=== PATIENT | male | born 1990 | race Caucasian/White ===

== ENCOUNTER 2018-03-20 20:32 | Emergency (ER) | payer MEDICAID ==
[2018-03-20] MEDS ORDERED: NS 1,000 ML IV ONE (20:54)
--- NOTE | 2018-03-20 21:16 | EDPHY ---
H & P Time Seen by Provider: 03/20/18 20:54 HPI/ROS: HPI Fainted earlier today. 27-year-old male by private vehicle with his care provider. He has a history of developmental delay. He is ambulatory without issue. He has a history of a seizure disorder prior syncopal events. His care provider tells me that he has a chronic balance problem. He had a brief syncopal event at 10:00 a.m. this morning after getting up from the seated position. He denies any associated sudden-onset headache, chest pain, shortness of breath, loss of sensation or weakness in his extremities. There was no witnessed seizure activity. It is not clear if he lost consciousness. His care provider told me that his eyes were open the entire time in the whole event lasted only a couple of seconds. He did not hit his head. He did not eat dinner last night and has had symptoms consistent with an upper respiratory infection for the last several days. His care provider thought that he looked more pale than usual and decided to bring him into the emergency department tonight. The patient does have a history of medical care seeking behavior so his care provider was initially reluctant to bring him in to the emergency department earlier today. The patient currently does not have any complaints. Please see review of systems for further details. ROS: Constitutional: No fever, no chills. As above. Eyes: No discharge. No changes in vision. ENT: No sore throat. No nasal congestion or rhinorrhea. Respiratory: No cough. No shortness of breath. Cardiac: No chest pain, no palpitations. Gastrointestinal: No abdominal pain, no vomiting, no diarrhea. Genitourinary: No hematuria. No dysuria or increased frequency with urination. Musculoskeletal: No back pain. No neck pain. No myalgias or arthralgias. Skin: No rashes. Neurological: No headache. No focal weakness or altered sensation. Past medical history: Pilonidal cyst, developmental delay, chronic balance problem, back surgery, seizures. Syncopal events in the past. No history of dysrhythmia. Social history: Is here with his care provider. No alcohol. No IV drugs or street drugs. Nonsmoker. Physical Exam: General Appearance: Alert, no distress. This patient is responding to questions appropriately and in full sentences. This patient appears well- hydrated and well-nourished. Head: Normocephalic atraumatic. Eyes: Pupils equal and round no pallor or injection. No lid edema, erythema or injection. ENT, Mouth: Mucous membranes are moist. The pharyngeal tissues are unremarkable. No edema or swelling. No asymmetry suggestive of abscess. No erythema or exudates. No tongue lacerations or abrasions. Respiratory: There are no retractions, lungs are clear to auscultation with good air movement bilaterally. Cardiovascular: Regular rate and rhythm. No murmur. Gastrointestinal: Abdomen is soft and nontender, no masses, bowel sounds normal. No focal tenderness at McBurney's point. No Mina sign. Neurological: Motor sensory function is grossly intact. Cranial nerves are normal. Gait is normal. Skin: Warm and dry, no rashes. Musculoskeletal: Neck is supple and nontender. Midline cervical, thoracic, lumbar tenderness on palpation. Extremities are symmetrical. All joints range without pain or impingement. Psychiatric: No agitation. No depression. Database: EKG: EKG time is 8:56 p.m.; EKG shows a narrow complex normal sinus rhythm with a ventricular rate of 72. Early repolarization pattern noted. The MT, QRS, QT intervals are within normal limits. There are no ST-T wave changes indicative of ischemic or injury pattern. No evidence of right heart strain. No evidence of WPW, Brugada syndrome, hypertrophic cardiomyopathy. Interpreted by me. Imaging: Procedures: Emergency department course: Triage vital signs reviewed. Temperature is 37.5 degrees. Vital signs are unremarkable. Patient's presentation is consistent with a vasovagal type syncope. Patient and caregiver consent for blood work to evaluate for anemia or electrolyte disorder. EKG obtained and reviewed by myself. The patient will be given 1 L of IV normal saline. Patient's blood work is unremarkable. No red flags on his EKG. Results of his emergency department workup discussed with the patient and his caregiver on re- evaluation at 9:40 p.m.. The patient and his inspector health care facilities feel comfortable being discharged. Follow-up and return to emergency department precautions reviewed with them. All of their questions were answered. The patient was discharged home in good condition with his caregiver. Differential Diagnosis: The differential diagnosis on this patient includes but is not limited to vasovagal syncope, noncardiac syncope. Arrhythmia, acute coronary syndrome, CVA , seizure, subarachnoid hemorrhage, pulmonary embolism unlikely. This represents a partial list of diagnoses considered. These considerations are based on history, physical exam, past history, reassessment and diagnostic testing. Smoking Status: Never smoked Constitutional: Initial Vital Signs Temperature (C) 37.5 C 03/20/18 20:49 Heart Rate 78 03/20/18 20:49 Respiratory Rate 16 03/20/18 20:49 Blood Pressure 103/76 03/20/18 20:49 O2 Sat (%) 93 03/20/18 20:49 O2 Delivery Mode Room Air Allergies/Adverse Reactions: amoxicillin Allergy (Verified 03/20/18 20:48) cefaclor [From [facility]] Allergy (Verified 03/20/18 20:47) Penicillins Allergy (Verified 03/20/18 20:47) Home Medications: Medication Instructions Recorded Abilify 10 mg (*) 20 mg 03/20/18 Oxymetazoline HCl [Nasal [place]] 03/20/18 Medical Decision Making - Data Points Laboratory Results: 03/20/18 21:10 POC Hgb 14.6 gm/dL gm/dL (13.7-17.5) POC Hct 43 % % (40-51) POC Sodium 141 mEq/L mEq/L (135-145) POC Potassium 3.8 mEq/L mEq/L (3.3-5.0) POC Chloride 102 mEq/L mEq/L (97-110) POC Total CO2 27 mEq/L mEq/L (22-31) POC BUN 13 mg/dL mg/dL (7-23) POC Creatinine 1.2 mg/dL mg/dL (0.7-1.3) POC Glucose 78 mg/dL mg/dL (70-100) Medications Given: Discontinued Medications Sodium Chloride (Ns) 1,000 mls @ 0 mls/hr IV EDNOW ONE; Wide Open PRN Reason: Protocol Stop: 03/20/18 20:55 Last Admin: 03/20/18 21:07 Dose: 1,000 mls Point of Care Test Results: Chemistry 03/20/18 21:10 POC Sodium 141 mEq/L mEq/L (135-145) POC Potassium 3.8 mEq/L mEq/L (3.3-5.0) POC Chloride 102 mEq/L mEq/L (97-110) POC Total CO2 27 mEq/L mEq/L (22-31) POC BUN 13 mg/dL mg/dL (7-23) POC Creatinine 1.2 mg/dL mg/dL (0.7-1.3) POC Glucose 78 mg/dL mg/dL (70-100) ISTAT H&H 03/20/18 21:10 POC Hgb 14.6 gm/dL gm/dL (13.7-17.5) POC Hct 43 % % (40-51) Departure - Departure Disposition: Home, Routine, Self-Care Clinical Impression: Syncope Condition: Good Instructions: Syncope (ED) Additional Instructions: Read and follow provided instructions. Follow-up with your primary care physician on Thursday for re-evaluation. Take your medication as prescribed. Eat 3 regular meals a day. Stable hydrated. Return to the emergency department for worsening symptoms, fainting, chest pain , palpitations, worsening headache or other serious concerns. Referrals: Vasu Art MD [Primary Care Provider] - As per Instructions
[2018-03-20 22:07] VITALS: BP 110/65
--- NOTE | 2018-03-21 22:49 | CPEKG ---
Test Reason : OPEN Blood Pressure : / mmHG Vent. Rate : 072 BPM Atrial Rate : 072 BPM P-R Int : 165 ms QRS Dur : 092 ms QT Int : 362 ms P-R-T Axes : 066 051 011 degrees QTc Int : [address] elev, probable normal early repol pattern Confirmed by Sahara aGgnon ([id number]) on 03/21/2018 10:48:41 PM Referred By: Sahara Gagnon Confirmed By:Sahara Gagnon
== END 2018-03-20 22:05 | disposition home or self-care (01) ==
LOC: CED 20:32
DX: R55 Syncope and collapse (principal); R62.50 Unspecified lack of expected normal physiological development in childhood; R56.9 Unspecified convulsions
CPT/HCPCS: 82435-PO; 82565-PO; 82947-PO; 84132-PO; 84295-PO; 84520-PO; 85014-ER; 96360-ER; 99284-ER